=== PATIENT | female | born 1970 | race Caucasian/White ===

== ENCOUNTER 2018-11-13 11:29 | Emergency (ER) | payer OTHER, SELFPAY ==
--- OUTSIDE RECORDS SUMMARY | 2018-11-13 11:44 | XMS REPORT ---
:1970 [facility] Address [address] [place] [address] Dr. Will [address] [place] [id number] Care Team Providers Name Role Phone Unavailable Unavailable Unavailable Problems This patient has no known problems. Allergies, Adverse Reactions, Alerts This patient has no known allergies or adverse reactions. Medications This patient has no known medications.
[2018-11-13] MEDS ORDERED: NA CHLORIDE 0.9% 1,000 ML ONE (12:05)
[2018-11-13 12:12] LABS: Absolute Lymphocytes (CBC) 1.4 K/uL (0.7-4.9); Absolute Monocytes 0.4 K/uL (0.1-1.3); Absolute Neutrophil 2.3 K/uL (1.8-8.0); Basophils % 0.7 % (0-1.3); Eosinophils % 3.1 % (0-4.4); Hematocrit 36.8 % (36.0-45.0); Lymphocytes % 32.5 % (15.3-44.8); MPV 6.5 fL (7.6-11.3); RBC Red Blood Cell Count 3.73 M/uL (3.86-4.86)
[2018-11-13 12:32] LABS: ALT/SGPT 15 U/L (12-78); AST/SGOT 15 U/L (15-37); Albumin 3.4 g/dL (3.4-5.0); Alkaline Phosphatase 47 U/L (45-117); BUN Blood Urea Nitrogen 9 mg/dL (7-18); Bicarbonate 26 mmol/L (21-32); Bilirubin Direct < 0.1 mg/dL (0-0.2); Bilirubin Total 0.3 mg/dL (0.2-1.0); Glucose Level 82 mg/dL (74-106); Lipase 78 U/L (73-393); Potassium 3.9 mmol/L (3.5-5.1); Protein, Total 6.4 g/dL (6.4-8.2); Sodium Level 142 mmol/L (136-145)
[2018-11-13] MEDS ORDERED: PROMETHAZINE 25 MG/ML VIAL ONE (12:37)
--- NOTE | 2018-11-13 13:33 | RAD REPORT ---
EXAM DESCRIPTION: US - Abdomen Exam Limited - 11/13/2018 1:24 pm CLINICAL HISTORY: eval CBD Abdominal pain COMPARISON: Abdomen Exam Complete dated 09/21/2018 FINDINGS: The gallbladder demonstrates small amount of sludge. No gallstone is seen. No pericholecys tic fluid or gallbladder wall thickening. The common bile duct is dilated measuring 10 mm. IMPRESSION: Small amount of sludge is seen in the gallbladder. The CBD appears dilated, similar to the comparative sonography. If further biliary tree assessment is warranted, MRCP may be of value.
--- NOTE | 2018-11-13 14:32 | EDPHYS ---
Physician Documentation [facility] Name: Olena Bowens Age: 48 yrs Sex: Female : 1970 Arrival Date: 11/13/2018 Time: 11:33 Bed 20 Private MD: Juventino Hook B ED Physician Ricky Caldwell HPI: 11/13 11:57 This 48 yrs old Female presents to ER via Ambulatory with complaints of side snw pain, Nausea. 11:57 Onset: The symptoms/episode began/occurred acutely. Associated signs and symptoms: snw Pertinent positives: nausea. recently had GB US and an appt with Dr. Huang. The patient has been recently seen by a physician: Dr. Hook, Dr. Huang. Pt had gastric bypass surg 8 years ago in [place] per "Dr. Shirley". Historical: - Allergies: 11:36 Bactrim; sv - PMHx: 11:36 Hypertension; Migraines; Depression; sv - PSHx: 11:36 Gastric Bypass; Hysterectomy; neck; back; sv - Immunization history:: Flu vaccine is up to date. - Social history:: Smoking status: Patient uses tobacco products, vape. - Ebola Screening: : No symptoms or risks identified at this time. ROS: 11:57 Constitutional: Negative for fever, chills, and weight loss, Eyes: Negative for injury, snw pain, redness, and discharge, ENT: Negative for injury, pain, and discharge, Neck: Negative for injury, pain, and swelling, Cardiovascular: Negative for chest pain, palpitations, and edema, Respiratory: Negative for shortness of breath, cough, wheezing, and pleuritic chest pain, Back: Negative for injury and pain, : Negative for injury, bleeding, discharge, and swelling, MS/Extremity: Negative for injury and deformity, Skin: Negative for injury, rash, and discoloration, Neuro: Negative for headache, weakness, numbness, tingling, and seizure. 11:57 Abdomen/GI: Positive for abdominal pain, nausea. Exam: 11:57 Constitutional: This is a well developed, well nourished patient who is awake, alert, snw and in no acute distress. Head/Face: Normocephalic, atraumatic. Eyes: Pupils equal round and reactive to light, extra-ocular motions intact. Lids and lashes normal. Conjunctiva and sclera are non-icteric and not injected. Cornea within normal limits. Periorbital areas with no swelling, redness, or edema. ENT: Nares patent. No nasal discharge, no septal abnormalities noted. Tympanic membranes are normal and external auditory canals are clear. Oropharynx with no redness, swelling, or masses, exudates, or evidence of obstruction, uvula midline. Mucous membranes moist. Neck: Trachea midline, no thyromegaly or masses palpated, and no cervical lymphadenopathy. Supple, full range of motion without nuchal rigidity, or vertebral point tenderness. No Meningismus. Chest/axilla: Normal chest wall appearance and motion. Nontender with no deformity. No lesions are appreciated. Cardiovascular: Regular rate and rhythm with a normal S1 and S2. No gallops, murmurs, or rubs. Normal PMI, no JVD. No pulse deficits. Respiratory: Lungs have equal breath sounds bilaterally, clear to auscultation and percussion. No rales, rhonchi or wheezes noted. No increased work of breathing, no retractions or nasal flaring. Back: No spinal tenderness. No costovertebral tenderness. Full range of motion. Skin: Warm, dry with normal turgor. Normal color with no rashes, no lesions, and no evidence of cellulitis. MS/ Extremity: Pulses equal, no cyanosis. Neurovascular intact. Full, normal range of motion. Neuro: Awake and alert, GCS 15, oriented to person, place, time, and situation. Cranial nerves II-XII grossly intact. Motor strength 5/5 in all extremities. Sensory grossly intact. Cerebellar exam normal. Normal gait. Psych: Awake, alert, with orientation to person, place and time. Behavior, mood, and affect are within normal limits. 11:57 Abdomen/GI: Inspection: abdomen appears normal, Bowel sounds: hyperactive, Palpation: moderate abdominal tenderness, in the right upper quadrant. Vital Signs: 11:36 BP 138 / 85; Pulse 77; Resp 18; Temp 99.4; Pulse Ox 98% ; Weight 77.11 kg; Height 5 ft. sv 2 in. (157.48 cm); Pain 8/10; 13:30 BP 132 / 76; Pulse 76; Resp 16; Pulse Ox 99% on R/A; Pain 5/10; hb 11:36 Body Mass Index 31.09 (77.11 kg, 157.48 cm) sv MDM: 11:42 Patient medically screened. cornelius 14:32 Data reviewed: vital signs, nurses notes. Data interpreted: Pulse oximetry: on room air snw is 99 %. Interpretation: normal. Counseling: I had a detailed discussion with the patient and/or guardian regarding: the historical points, exam findings, and any diagnostic results supporting the discharge/admit diagnosis, lab results, radiology results, the need for outpatient follow up, to return to the emergency department if symptoms worsen or persist or if there are any questions or concerns that arise at home. Response to treatment: the patient's symptoms have mildly improved after treatment. Response to treatment: and as a result, I will discharge patient. Special discussion: Based on the patient's Hx, exam, and Dx evaluation, there is no indication for emergent surgery or inpatient Tx. It is understood by the patient/guardian that if the Sx's persist or worsen they need to return immediately for re-evaluation. Based on the history and exam findings, there is no indication for further emergent testing or inpatient evaluation. I discussed with the patient/guardian the need to see the rate marker for further evaluation of the symptoms. I discussed with the patient/guardian the need to see the primary care provider for further evaluation of the symptoms. 11/13 11:49 Order name: Basic Metabolic Panel [facility] 11/13 11:49 Order name: CBC with Diff [facility] 11/13 11:49 Order name: Creatinine for Radiology [facility] 11/13 11:49 Order name: Hepatic Function [facility] 11/13 11:49 Order name: Lipase [facility] 11/13 12:14 Order name: CBC with Automated Diff; Complete Time: 12:18 EDPR 11/13 11:49 Order name: IV Saline Lock; Complete Time: 12:04 [facility] 11/13 12:28 Order name: Creatinine (Radiology Only); Complete Time: 12:48 EDMS 11/13 12:33 Order name: Basic Metabolic Panel; Complete Time: 12:48 EDPR 11/13 12:33 Order name: Liver (Hepatic) Function; Complete Time: 12:48 EDMS 11/13 12:33 Order name: Lipase; Complete Time: 12:48 EDMS 11/13 12:49 Order name: US Abdomen Limited; Complete Time: 13:47 [facility] 11/13 11:49 Order name: Labs collected and sent; Complete Time: 12:04 snw Administered Medications: 12:04 Drug: NS 0.9% 1000 ml Route: IV; Rate: 75 ml/hr; Site: right antecubital; hb 12:33 Drug: Phenergan 12.5 mg Route: IVP; Site: right antecubital; hb Disposition: 15:51 Co-signature as Attending Physician, Ricky Caldwell MD I agree with the assessment and cornelius plan of care. Disposition: 11/13/18 14:31 Discharged to Home. Impression: Upper abdominal pain, unspecified - Dilated common bile duct. - Condition is Stable. - Discharge Instructions: Abdominal Pain, Adult, Biliary Colic, Adult, Fat and Cholesterol Restricted Diet. - Work release form, Medication Reconciliation Form, Thank You Letter, Antibiotic Education, Prescription Opioid Use form. - Follow up: Juventino Hook MD; When: 2 - 3 days; Reason: Recheck today's complaints, Continuance of care, Re-evaluation by your physician. Follow up: Alfie Huang MD; When: 1 - 2 days; Reason: Recheck today's complaints, Continuance of care. Signatures: Dispatcher [employer] Nida Varela RN RN sv Anderson, Corey, MD MD cha Therrien, Shelly, MAIL MESSENGER-C MAIL MESSENGER-Csnw Leisa Ortiz RN RN Corrections: (The following items were deleted from the chart) 14:53 14:31 11/13/2018 14:31 Discharged to Home. Impression: Upper abdominal pain, hb unspecified - Dilated common bile duct. Condition is Stable. Forms are Medication Reconciliation Form, Thank You Letter, Antibiotic Education, Prescription Opioid Use. Follow up: Juventino Hook; When: 2 - 3 days; Reason: Recheck today's complaints, Continuance of care, Re-evaluation by your physician. Follow up: Alfie Huang; When: 1 - 2 days; Reason: Recheck today's complaints, Continuance of care. snw
--- NOTE | 2018-11-13 14:32 | ER ---
Nurse's Notes [facility] Name: Olena Bowens Age: 48 yrs Sex: Female : 1970 Arrival Date: 11/13/2018 Time: 11:33 Bed 20 Private MD: Juventino Hook B Diagnosis: Upper abdominal pain, unspecified-Dilated common bile duct Presentation: 11/13 11:34 Presenting complaint: Patient states: right flank pain and nausea x 2 hours. Pt sv recently had an US done and said she has a clogged bile duct and was supposed to have MRCP Tuesday but was unable to do so d/t financial reason.s. Transition of care: patient was not received from another setting of care. Onset of symptoms was November 13, 2018. Care prior to arrival: None. 11:34 Method Of Arrival: Ambulatory sv 11:34 Acuity: JEROD 3 sv 12:00 Risk Assessment: Do you want to hurt yourself or someone else? Patient reports no hb desire to harm self or others. Initial Sepsis Screen: Does the patient meet any 2 criteria? No. Patient's initial sepsis screen is negative. Does the patient have a suspected source of infection? No. Patient's initial sepsis screen is negative. Triage Assessment: 11:37 General: Appears in no apparent distress. uncomfortable, Behavior is calm, cooperative, sv appropriate for age. Pain: Complains of pain in posterior aspect of right lateral abdomen and anterior aspect of right lateral abdomen Pain currently is 8 out of 10 on a pain scale. Neuro: Level of Consciousness is awake, alert, obeys commands, Oriented to person, place, time, situation, Moves all extremities. Full function Gait is steady. Respiratory: Respiratory effort is even, unlabored, Respiratory pattern is regular, symmetrical. GI: Reports nausea. Historical: - Allergies: 11:36 Bactrim; sv - PMHx: 11:36 Hypertension; Migraines; Depression; sv - PSHx: 11:36 Gastric Bypass; Hysterectomy; neck; back; sv - Immunization history:: Flu vaccine is up to date. - Social history:: Smoking status: Patient uses tobacco products, vape. - Ebola Screening: : No symptoms or risks identified at this time. Screenin:00 Abuse screen: Denies threats or abuse. Denies injuries from another. Nutritional hb screening: No deficits noted. Tuberculosis screening: No symptoms or risk factors identified. Fall Risk None identified. Assessment: 12:00 General: Appears in no apparent distress. Behavior is calm, cooperative. Pain: Pain hb currently is 7 out of 10 on a pain scale. Neuro: Level of Consciousness is awake, alert, obeys commands, Oriented to person, place, time, situation. Cardiovascular: Heart tones S1 S2 present Capillary refill < 3 seconds Patient's skin is warm and dry. Respiratory: Airway is patent Respiratory effort is even, unlabored, Respiratory pattern is regular, symmetrical, Breath sounds are clear bilaterally. GI: Abdomen is flat, Bowel sounds present X 4 quads. Abd is soft and non tender X 4 quads. Reports lower abdominal pain. : No signs and/or symptoms were reported regarding the genitourinary system. EENT: No signs and/or symptoms were reported regarding the EENT system. Derm: Skin is intact, is healthy with good turgor. Musculoskeletal: No signs and/or symptoms reported regarding the musculoskeletal system. 13:00 Reassessment: Patient appears in no apparent distress at this time. Patient and/or hb family updated on plan of care and expected duration. Pain level reassessed. Patient is alert, oriented x 3, equal unlabored respirations, skin warm/dry/pink. 14:00 Reassessment: Patient appears in no apparent distress at this time. Patient and/or hb family updated on plan of care and expected duration. Pain level reassessed. Patient is alert, oriented x 3, equal unlabored respirations, skin warm/dry/pink. Vital Signs: 11:36 BP 138 / 85; Pulse 77; Resp 18; Temp 99.4; Pulse Ox 98% ; Weight 77.11 kg; Height 5 ft. sv 2 in. (157.48 cm); Pain 8/10; 13:30 BP 132 / 76; Pulse 76; Resp 16; Pulse Ox 99% on R/A; Pain 5/10; hb 11:36 Body Mass Index 31.09 (77.11 kg, 157.48 cm) sv ED Course: 11:33 Patient arrived in ED. sb2 11:33 Juventino Hook MD is Private Physician. sb2 11:35 Triage completed. sv 11:37 Arm band placed on. sv 11:40 Stephany Masterson [facility]-C [facility]. snw 11:40 Ricky Caldwell MD is Attending Physician. snw 11:52 Leisa Ortiz, RN is Primary Nurse. hb 12:09 Patient has correct armband on for positive identification. Placed in gown. Bed in low mh5 position. Call light in reach. Side rails up X 1. Adult w/ patient. Warm blanket given. Pulse ox on. NIBP on. 12:09 Initial lab(s) drawn, sent to lab. Inserted saline lock: 20 gauge in right antecubital mh5 area, using aseptic technique. Blood collected. 13:15 Basic Metabolic Panel Sent. 5 13:15 CBC with Diff Sent. mh5 13:15 Creatinine for Radiology Sent. 5 13:16 Hepatic Function Sent. 5 13:16 Lipase Sent. 5 13:24 US Abdomen Limited In Process Unspecified. EDMS 14:30 Juventino Hook MD is Referral Physician. snw 14:30 Alfie Huang MD is Referral Physician. snw 14:44 No provider procedures requiring assistance completed. IV discontinued, intact, hb bleeding controlled, No redness/swelling at site. Pressure dressing applied. Administered Medications: 12:04 Drug: NS 0.9% 1000 ml Route: IV; Rate: 75 ml/hr; Site: right antecubital; hb 12:33 Drug: Phenergan 12.5 mg Route: IVP; Site: right antecubital; hb Outcome: 14:31 Discharge ordered by . snw 14:44 Discharged to home ambulatory, with significant other. hb 14:44 Condition: stable 14:44 Discharge instructions given to patient, family, Instructed on discharge instructions, follow up and referral plans. medication usage, Demonstrated understanding of instructions, follow-up care, medications. 14:53 Patient left the ED. hb Signatures: Dispatcher [employer] EDPR Nida Vazquze RN RN sv Therrien, Shelly, FNP-Tony [employer]ULLET CRUSHER [employer] WASHER-Angélicaw Leisa Ortiz, IZAIAH RN Gely [facility] Dorothy Parra sb2 Corrections: (The following items were deleted from the chart) 11:37 11:36 Pulse 77bpm; Resp 18bpm; Pulse Ox 98%; Temp 99.4F; 77.11 kg; Height 5 ft. 2 in.; sv BMI: 31.0; Pain 8/10; sv
[2018-11-13 15:02] VITALS: TEMP 99.4
[2018-11-13 15:04] VITALS: BP 132/76; O2SAT 99
== END 2018-11-13 14:53 | disposition home or self-care (01) ==
LOC: ER 11:29
DX: K83.8 Other specified diseases of biliary tract (principal); I10 Essential (primary) hypertension; Z72.0 Tobacco use; Z88.1 Allergy status to other antibiotic agents
CPT/HCPCS: 36415; 76705; 80048; 80076; 83690; 85025; J2550; J7030

== ENCOUNTER 2024-12-11 17:46 | Inpatient (IN) | payer OTHER ==
--- NOTE | 2024-12-11 18:36 | RAD REPORT ---
EXAM: Chest Single View HISTORY: cough COMPARISON: 07/27/2017 FINDINGS: LUNGS/PLEURA: Ill-defined opacities in the right upper lobe and to lesser extent right lung base. MEDIASTINUM: The mediastinal silhouette is within normal limits. CARDIAC: The cardiac silhouette is within normal limits. UPPER ABDOMEN: No significant abnormality. BONES: No acute abnormality. LINES/TUBES/OTHER: N/A IMPRESSION: Ill-defined right lung opacities, primarily in the right upper lobe, concerning for pneumonia. John garcia follow-up is recommended to ensure resolution.
--- NOTE | 2024-12-11 19:59 | P.HP ---
Certification for Inpatient Patient admitted to: Inpatient With expected LOS: >2 Midnights Practitioner: I am a practitioner with admitting privileges, knowledge of patient current condition, hospital course, and medical plan of care. Services: Services provided to patient in accordance with Admission requirements found in Title 42 Section 412.3 of the Code of Federal Regulations Patient History Date of Service: 12/11/24 Reason for admission: pneumonia History of Present Illness: 54-year-old female with past medical history of SVT, fibromyalgia, chronic back pain, hypertension, migraines, history of gastric bypass presents to ER with 2- day history of worsening shortness of breath and productive cough and fevers. Reports that antibiotics were ordered outpatient she did not started. Had a temperature of 102 degrees at home. States that oxygen sats were 88% on room air and then presented to the ER. In the emergency room was noted to have an abnormal chest x-ray. She has being admitted for community-acquired pneumonia. Her viral screen is currently pending. As well as her lab work. She does report that she vapes. Reports diarrhea that has started in the last day Allergies sulfamethoxazole [From Bactrim DS] Adverse Reaction (Mild, Verified 08/14/14 21:15) Hives trimethoprim [From Bactrim DS] Adverse Reaction (Mild, Verified 08/14/14 21:15) Hives Home Medications: Gabapentin [Neurontin] 800 mg PO QIDP PRN 08/14/14 Venlafaxine HCl [Effexor*] 75 mg PO DAILY 08/14/14 Amlodipine Besylate [Norvasc] 1 tab PO DAILY 07/27/17 Baclofen [Lioresal] 1 tab PO TID 07/27/17 Hydrocodone Bit/Acetaminophen [Central 10-325 Tablet] 1 tab PO TID 07/27/17 Levomefolate Calcium [l-Methylfolate] 1 tab PO DAILY 07/27/17 Famotidine [Pepcid*] 20 mg PO BID #60 tab 07/28/17 Ferrous Sulfate [Iron] 325 mg PO BID #60 tablet 07/28/17 - Past Medical/Surgical History Diabetic: No -: Migraine headaches -: Depression -: Iron deficiency anemia -: Fibromyalgia -: Hypertension -: History of TIA -: Neuropathy -: Chronic back pain -: Gastric bypass -: Hysterectomy -: Multiple back surgeries -: Carpal tunnel surgery Psychosocial/ Personal History: The patient is . She has 2 children. She works as a police lieutenant patrol. - Family History Mother -: Heart disease, Diabetes, Stroke Father -: Heart disease, Hypertension, Cancer - Social History Alcohol use: No CD- Drugs: No Caffeine use: Yes Review of Systems 10-point ROS is otherwise unremarkable General: Fever, Weakness Respiratory: Cough, Shortness of Breath, Sputum Physical Examination - Physical Exam General: Alert, Oriented x3 HEENT: Atraumatic, Normocephalic Respiratory: Rhonchi/gurgles Cardiovascular: No edema, Regular rate/rhythm, Normal S1 S2 Gastrointestinal: Soft and benign, Non-distended Musculoskeletal: No swelling Integumentary: No rashes, Other Neurological: Normal speech Assessment and Plan - Problems (Diagnosis) (1) Pneumonia Current Visit: Yes Status: Acute - Plan 54-year-old female with history of chronic back pain, farm [place], hypertension, history of SVT, tobacco use presents with 2-day history of cough and fevers. Community-acquired pneumonia Hypoxemic respiratory failure tobacco use Diarrhea Hypertension History of arrhythmia History of chronic back pain Gastric bypass surgery Plan: Admit to [facility] with telemetry IV fluids, IV Rocephin and azithromycin albuterol , mucinex Follow-up cultures send stool studies Fluids Follow-up labs Home medication reconciliation - Advance Directives Does patient have a Living Will: No Does patient have a Durable POA for Healthcare: No
[2024-12-11] MEDS ORDERED: CEFTRIAXONE 1000 MG/VIAL ONE (20:13)
[2024-12-11] MEDS ORDERED: ALBUTEROL 2.5 MG/3 ML NEB SOL ONE (20:13)
[2024-12-11] MEDS ORDERED: IPRATROPIUM BROM 0.5MG/2.5ML ONE (20:13)
[2024-12-11] MEDS ORDERED: NA CHLORIDE 0.9% 250 ML ONE (20:14)
[2024-12-11] MEDS ORDERED: NA CHLORIDE 0.9% 1,000 ML ONE (20:14)
[2024-12-11] MEDS ORDERED: AZITHROMYCIN 500 MG INJ IVPB ONE (20:14)
[2024-12-11 20:19] LABS: Absolute Lymphocytes (CBC) 0.7 K/uL (0.7-4.9); Absolute Monocytes 0.2 K/uL (0.1-1.3); Absolute Neutrophil 6.9 K/uL (1.8-8.0); Basophils % 0.1 % (0-1.3); Hematocrit 37.6 % (36.0-45.0); Hemoglobin 12.4 g/dL (12.0-15.0); Lymphocytes % 8.9 % (15.3-44.8); MCH 32.5 pg (27.0-35.0); MCV 98.5 fL (80-100); MPV 7.1 fL (7.6-11.3); Monocytes % 2.8 % (3.3-12.3); Neutrophils % 88.2 % (41.7-73.7); Platelets 165 thou/uL (152-406); RBC Red Blood Cell Count 3.82 M/uL (3.86-4.86); Red Cell Distribution Width 13.7 % (12.1-15.2)
[2024-12-11 20:21] LABS: SARS-CoV-2 Antigen CONTROL BLUE LINE VIS/BG OK; SARS-CoV-2 Antigen Rapid Res Negative (Negative)
[2024-12-11 20:32] LABS: ALT/SGPT 35 U/L (13-56); AST/SGOT 41 U/L (15-37); Albumin 2.8 g/dL (3.4-5.0); Albumin/Globulin Ratio 0.7 (1.1-1.8); Alkaline Phosphatase 61 U/L (45-117); Anion Gap 10.7 mEq/L (5.0-15.0); BUN Blood Urea Nitrogen 31 mg/dL (7-18); Bicarbonate 22 mEq/L (21-32); Bilirubin Total 0.4 mg/dL (0.2-1.0); Globulin 3.8 g/dL (2.3-3.5); Glomerular Filtration Rate 31 ml/min (=/>90); Glucose Level 106 mg/dL (74-106); Potassium 3.7 mEq/L (3.5-5.1); Protein, Total 6.6 g/dL (6.4-8.2); Sodium Level 133 mEq/L (136-145)
[2024-12-11 20:58] LABS: Bilirubin Direct < 0.2 mg/dL (0-0.2); Bilirubin Indirect, Calculated 0.2 mg/dL (0.2-0.8)
[2024-12-11] MEDS ORDERED: ALBUTEROL 2.5 MG/3 ML NEB SOL NEB PRN (21:07)
--- NOTE | 2024-12-11 21:20 | EDPHYS ---
Physician Documentation [facility] Name: Olena Bowens Age: 54 yrs Sex: Female : 1970 Arrival Date: 12/11/2024 Time: 17:46 Bed 14 Private MD: ED Physician Himanshu Pinzon HPI: 12/11 18:59 This 54 yrs old Female presents to ER via Unassigned with complaints of Flu Symptoms, sp3 Shortness Of Breath. 18:59 54-year-old female with a history of hypertension presents to the ED with chief sp3 complaint of fever, cough, congestion, generalized weakness. PCP put patient on Tamiflu, inhaler and cough suppressant still patient feels like she is getting worse. She denies headache, trauma, known sick contacts, back pain, chest pain, abdominal pain, vomiting, diarrhea, syncope, or any other signs or symptoms on ROS at this time.. Historical: - Allergies: 20:43 Bactrim; kj2 - PMHx: 18:50 Depression; Hypertension; Migraines; kj2 - Immunization history:: Adult Immunizations unknown. - Infectious Disease History:: Denies. - Social history:: Smoking status: unknown. ROS: 19:01 Eyes: Negative for injury, pain, redness, and discharge, ENT: Negative for injury, sp3 pain, and discharge, Neck: Negative for injury, pain, and swelling, Cardiovascular: Negative for chest pain, palpitations, and edema, Abdomen/GI: Negative for abdominal pain, nausea, vomiting, diarrhea, and constipation, Back: Negative for injury and pain, MS/Extremity: Negative for injury and deformity, Skin: Negative for injury, rash, and discoloration, Neuro: Negative for headache, weakness, numbness, tingling, and seizure, Psych: Negative for depression, anxiety, suicide ideation, homicidal ideation, and hallucinations, Allergy/Immunology: Negative for hives, rash, and allergies, Endocrine: Negative for neck swelling, polydipsia, polyuria, polyphagia, and marked weight changes, Hematologic/Lymphatic: Negative for swollen nodes, abnormal bleeding, and unusual bruising, 19:01 All other systems are negative, Exam: 19:01 Constitutional: This is a well developed, well nourished patient who is awake, alert, sp3 and in no acute distress. Head/Face: Normocephalic, atraumatic. Eyes: Pupils equal round and reactive to light, extra-ocular motions intact. Lids and lashes normal. Conjunctiva and sclera are non-icteric and not injected. Cornea within normal limits. Periorbital areas with no swelling, redness, or edema. Neck: Trachea midline, no thyromegaly or masses palpated, and no cervical lymphadenopathy. Supple, full range of motion without nuchal rigidity, or vertebral point tenderness. No Meningismus. Chest/axilla: Normal chest wall appearance and motion. Nontender with no deformity. No lesions are appreciated. Cardiovascular: Regular rate and rhythm with a normal S1 and S2. No gallops, murmurs, or rubs. Normal PMI, no JVD. No pulse deficits. Abdomen/GI: Soft, non-tender, with normal bowel sounds. No distension or tympany. No guarding or rebound. No evidence of tenderness throughout. Back: No spinal tenderness. No costovertebral tenderness. Full range of motion. Skin: Warm, dry with normal turgor. Normal color with no rashes, no lesions, and no evidence of cellulitis. MS/ Extremity: Pulses equal, no cyanosis. Neurovascular intact. Full, normal range of motion. Neuro: Awake and alert, GCS 15, oriented to person, place, time, and situation. Cranial nerves II-XII grossly intact. Motor strength 5/5 in all extremities. Sensory grossly intact. Cerebellar exam normal. Normal gait. Psych: Awake, alert, with orientation to person, place and time. Behavior, mood, and affect are within normal limits. 19:01 Respiratory: Active cough with rhonchi bilaterally., Vital Signs: 18:50 BP 84 / 56; Pulse 82; Resp 18; Pulse Ox 95% on R/A; kj2 19:50 BP 75 / 65; Pulse 80; Resp 20; Pulse Ox 94% on R/A; kj2 20:49 BP 95 / 67; Pulse 74; Resp 16; Temp 97.6; Pulse Ox 99% ; rk3 22:00 BP 90 / 60; Pulse 72; Resp 17; Pulse Ox 96% ; jj7 22:50 BP 90 / 63; Pulse 71; Resp 19; Pulse Ox 100% ; Pain 0/10; jj7 22:50 Pain Scale: Adult jj7 MDM: 18:42 Medical Screening Exam initiated sp3 19:01 Data reviewed: vital signs, nurses notes, lab test result(s), radiologic studies. ED sp3 course: 54-year-old female with cough, fever and hypoxia at 92% on room air. Patient does vape but does not smoke. Differential diagnosis includes bronchitis, pneumonia, viral illness, COVID-19, influenza, among others. I am not highly suspicious of CHF, shock, or any other critical process at this time. Disposition probable admission. Chest x-ray does demonstrate infiltrate and we will treat with community-acquired pneumonia with Zithromax and Rocephin. Will admit once labs reviewed.. 21:20 Differential diagnosis: Anxiety Reaction asthma, Bronchitis Chronic Obstructive sp4 Pulmonary Disease pneumonia. ED course: EXAM: Chest Single View HISTORY: cough COMPARISON: 07/27/2017 FINDINGS: LUNGS/PLEURA: Ill-defined opacities in the right upper lobe and to lesser extent right lung base. MEDIASTINUM: The mediastinal silhouette is within normal limits. CARDIAC: The cardiac silhouette is within normal limits. UPPER ABDOMEN: No significant abnormality. BONES: No acute abnormality. LINES/TUBES/OTHER: N/A IMPRESSION: Ill-defined right lung opacities, primarily in the right upper lobe, concerning for pneumonia. Imaging follow-up is recommended to ensure resolution. . 12/11 18:27 Order name: Influenza Screen (A EDUT 12/11 18:27 Order name: Basic Metabolic Panel EDMS 12/11 18:27 Order name: CBC with Automated Diff EDMS 12/11 18:27 Order name: Liver (Hepatic) Function EDMS 12/11 18:27 Order name: Blood Culture EDMS 12/11 18:57 Order name: Lactate w/ 2H reflex if indic. sp3 12/11 18:57 Order name: SARS RAPID sp3 12/11 21:11 Order name: Urinalysis w/ reflexes EDMS 12/11 21:11 Order name: CBC with Automated Diff EDMS 12/11 21:11 Order name: CBC with Automated Diff EDMS 12/11 21:11 Order name: Comprehensive Metabolic Panel EDMS 12/11 21:11 Order name: Comprehensive Metabolic Panel EDUT 12/11 21:11 Order name: Sputum Culture EDMS 12/11 21:12 Order name: Stool Culture EDMS 12/11 18:27 Order name: Chest Single View; Complete Time: 18:42 EDMS Administered Medications: 20:27 Drug: NS 0.9% IV 1000 ml IV at 1 bolus Per protocol; to be given as a bolus over 60 kj2 minutes Route: IV; Rate: 1 bolus; Site: right antecubital; 21:47 Follow up: IV Status: Completed infusion; IV Intake: 1000ml kj2 20:27 Drug: DuoNeb Nebulize (3:1) (2.5 mg - 0.5 mg) 3 ml Nebulizer once Route: Nebulizer; kj2 21:47 Follow up: Response: No adverse reaction kj2 20:28 Drug: Rocephin IV 1 grams IV at calculated rate once; Given slow IV push per pharmacy kj2 instructions Route: IV; Rate: calculated rate; Site: right antecubital; 22:00 Follow up: IV Status: Completed infusion jj7 20:28 Drug: Zithromax IVPB 500 mg IVPB once over 1 hrs; mix in 250 mL NS Route: IVPB; Infused kj2 Over: 1 hrs; Site: right antecubital; 21:47 Follow up: Response: No adverse reaction; IV Status: Completed infusion; IV Intake: kj2 250ml Disposition Summary: 12/11/24 21:19 Hospitalization Ordered Notes: Hospitalization Status: Inpatient Admission sp4 Provider: Andrew Wyatt Location: Telemetry/[facility] (Inpatient) sp4 Condition: Stable sp4 Problem: new sp4 Symptoms: have improved sp4 Bed/Room Type: Standard sp4 Room Assignment: [facility](12/11/24 21:34) [facility] Diagnosis - Other pneumonia, unspecified organism sp4 - Right lower pneumonia with hypoxemia sp4 Forms: - Medication Reconciliation Form sp4 - SBAR form sp4 - Leadership Thank You Letter sp4 Signatures: Dispatcher [employer] EDMS Sim Canas MD MD sp3 Celia Tena, IZAIAH RN kb3 Himanshu Pinzon MD MD sp4 Sherine Amaral [facility] Diana Yin RN RN kj2 Adilene Lao RN jj7 Corrections: (The following items were deleted from the chart) 18:57 18:57 LACTATE+C.LAB.BRZ ordered. EDMS EDMS 21:34 21:19 sp4 kmf
--- NOTE | 2024-12-11 21:20 | ER ---
Nurse's Notes [facility] Name: Olena Bowens Age: 54 yrs Sex: Female : 1970 Arrival Date: 12/11/2024 Time: 17:46 Bed 14 Private MD: Diagnosis: Other pneumonia, unspecified organism;Right lower pneumonia with hypoxemia Presentation: 12/11 18:45 Chief complaint: Patient states: flu symptoms. Coronavirus screen: Client denies travel kj2 out of the [place] in the last 14 days. Ebola Screen: No symptoms or risks identified at this time. Initial Sepsis Screen: Does the patient meet any 2 criteria? No. Patient's initial sepsis screen is negative. Does the patient have a suspected source of infection? No. Patient's initial sepsis screen is negative. Risk Assessment: Do you want to hurt yourself or someone else? Patient reports no desire to harm self or others. Onset of symptoms was December 11, 2024. 18:45 Method Of Arrival: Ambulatory kj2 18:45 Acuity: JEROD 3 kj2 Triage Assessment: 18:50 General: Appears in no apparent distress. Behavior is calm, cooperative. Pain: Denies kj2 pain. Neuro: Level of Consciousness is awake, alert, obeys commands, Oriented to person, place, time, situation. Cardiovascular: Patient's skin is warm and dry. Respiratory: Reports shortness of breath at rest cough that is non-productive. Respiratory: Onset: The symptoms/episode began/occurred 2 days, the patient has moderate shortness of breath. GI: No signs and/or symptoms were reported involving the gastrointestinal system. : No signs and/or symptoms were reported regarding the genitourinary system. Historical: - Allergies: 20:43 Bactrim; kj2 - PMHx: 18:50 Depression; Hypertension; Migraines; kj2 - Immunization history:: Adult Immunizations unknown. - Infectious Disease History:: Denies. - Social history:: Smoking status: unknown. Screenin:50 [facility] ED Fall Risk Assessment (Adult) History of falling in the last 3 months, kj2 including since admission No falls in past 3 months (0 pts) Confusion or Disorientation No (0 pts) Intoxicated or Sedated No (0 pts) Impaired Gait No (0 pts) Mobility Assist Device Used No (0 pt) Altered Elimination No (0 pt) Score/Fall Risk Level 0 - 2 = Low Risk Maintained a safe environment, Hourly rounding (assess needs \T\ fall precautionary measures) done. Abuse screen: Denies threats or abuse. Denies injuries from another. Nutritional screening: No deficits noted. Tuberculosis screening: No symptoms or risk factors identified. Assessment: 18:50 General: see triage assessment. Cardiovascular: Patient's skin is warm and dry. kj2 Cardiovascular: Rhythm is sinus rhythm. Respiratory: Airway is patent Respiratory effort is unlabored, Breath sounds with rhonchi bilaterally. in right upper lobe and left upper lobe. 19:50 Reassessment: Patient appears in no apparent distress at this time. Patient and/or kj2 family updated on plan of care and expected duration. Pain level reassessed. Patient is alert, oriented x 3, equal unlabored respirations, skin warm/dry/pink. 20:50 Reassessment: Patient appears in no apparent distress at this time. Patient and/or kj2 family updated on plan of care and expected duration. Pain level reassessed. Patient is alert, oriented x 3, equal unlabored respirations, skin warm/dry/pink. 21:50 Reassessment: Patient appears in no apparent distress at this time. Patient and/or kj2 family updated on plan of care and expected duration. Pain level reassessed. Patient is alert, oriented x 3, equal unlabored respirations, skin warm/dry/pink. 22:00 Reassessment: ASSUMED CARE OF PT. PT SITTING IN BED. NO DISTRESS NOTED. VS STABLE. jj7 FAMILY AT BEDSIDE. CALL GREEN IN REACH. Vital Signs: 18:50 BP 84 / 56; Pulse 82; Resp 18; Pulse Ox 95% on R/A; kj2 19:50 BP 75 / 65; Pulse 80; Resp 20; Pulse Ox 94% on R/A; kj2 20:49 BP 95 / 67; Pulse 74; Resp 16; Temp 97.6; Pulse Ox 99% ; rk3 22:00 BP 90 / 60; Pulse 72; Resp 17; Pulse Ox 96% ; jj7 22:50 BP 90 / 63; Pulse 71; Resp 19; Pulse Ox 100% ; Pain 0/10; jj7 22:50 Pain Scale: Adult jj7 ED Course: 18:27 Patient arrived in ED. kb3 18:30 Sim Canas MD is Attending Physician. sp3 18:33 Chest Single View In Process Unspecified. EDMS 19:51 Missed attempt(s): 20 gauge in left antecubital area. Bleeding controlled, band aid rk3 applied, catheter tip intact. 19:52 Inserted saline lock: 20 gauge in right antecubital area, using aseptic technique. jj7 Blood collected. Flushed with 10 mL NS. 20:05 Diana Yin, RN is Primary Nurse. kj2 20:06 Triage completed. kj2 21:13 COVID swab sent to lab. Flu and/or RSV swab sent to lab. rk3 21:18 Attending Physician role handed off by Sim Canas MD sp4 21:18 Himanshu Pinzon MD is Attending Physician. sp4 21:18 Andrew Wyatt MD is Hospitalizing Provider. sp4 22:00 No provider procedures requiring assistance completed. Patient admitted, IV remains in jj7 place. 22:00 Patient has correct armband on for positive identification. Placed in gown. Provided [facility] Education on: CALL GREEN USE. Administered Medications: 20:27 Drug: NS 0.9% IV 1000 ml IV at 1 bolus Per protocol; to be given as a bolus over 60 kj2 minutes Route: IV; Rate: 1 bolus; Site: right antecubital; 21:47 Follow up: IV Status: Completed infusion; IV Intake: 1000ml kj2 20:27 Drug: DuoNeb Nebulize (3:1) (2.5 mg - 0.5 mg) 3 ml Nebulizer once Route: Nebulizer; kj2 21:47 Follow up: Response: No adverse reaction kj2 20:28 Drug: Rocephin IV 1 grams IV at calculated rate once; Given slow IV push per pharmacy kj2 instructions Route: IV; Rate: calculated rate; Site: right antecubital; 22:00 Follow up: IV Status: Completed infusion j7 20:28 Drug: Zithromax IVPB 500 mg IVPB once over 1 hrs; mix in 250 mL NS Route: IVPB; Infused kj2 Over: 1 hrs; Site: right antecubital; 21:47 Follow up: Response: No adverse reaction; IV Status: Completed infusion; IV Intake: kj2 250ml Medication: 22:00 VIS not applicable for this client. jj7 Intake: 21:47 IV: 1000ml; Total: 1000ml. kj2 21:47 IV: 250ml; Total: 1250ml. kj2 Outcome: 21:19 Decision to Hospitalize by Provider. sp4 22:50 Admitted to Med/surg accompanied by nurse, via wheelchair, room 228, Report called to miguel angel REPORT FAXED BY DIANA RN TO 2ND FLOOR 22:50 Condition: improved 23:17 Patient left the ED. miguel angel Signatures: Dispatcher [employer] EDMS Sim Canas MD MD sp3 Celia Tena, RN RN kb3 Adilene Lao, RN RN jj7 Himanshu Pinzon MD MD sp4 Diana Yin, RN RN kj2 Gemini Lauren rk3
[2024-12-11] MEDS: NA CHLORIDE 0.9% 1,000 ML IV SCH (23:28)
[2024-12-11 23:34] VITALS: BMI 25.5
[2024-12-12 01:40] LABS: Specific Gravity 1.009 (1.005-1.030); Sqamous Epithelial <5 /HPF (None Seen); Urine Bacteria <20 /HPF (<20); Urine Bilirubin NEGATIVE (Negative); Urine Blood Negative (Negative); Urine Clarity Clear (Clear); Urine Color Colorless (Yellow); Urine Culture Reflex Order NOT NEEDED; Urine Glucose NEGATIVE (Negative); Urine Ketones NEGATIVE (Negative); Urine Microscopic Reflex YN ORDER UMIC; Urine Mucus Slight /HPF (None Seen); Urine Nitrite NEGATIVE (Negative); Urine Protein NEGATIVE (Negative); Urine RBC None Seen /HPF (None Seen); Urine Urobilinogen Normal (Normal); Urine WBC <5 /HPF (<5); Urine pH 5.5 (5.0-7.0)
[2024-12-12 05:40] LABS: Absolute Lymphocytes (CBC) 0.7 K/uL (0.7-4.9); Absolute Monocytes 0.2 K/uL (0.1-1.3); Absolute Neutrophil 4.9 K/uL (1.8-8.0); Basophils % 0.1 % (0-1.3); Eosinophils % 0.1 % (0-4.4); Hematocrit 35.6 % (36.0-45.0); Hemoglobin 11.8 g/dL (12.0-15.0); Lymphocytes % 12.4 % (15.3-44.8); MCH 32.6 pg (27.0-35.0); MCHC 33.2 g/dL (32.0-36.0); MCV 98.4 fL (80-100); Monocytes % 3.5 % (3.3-12.3); Neutrophils % 83.9 % (41.7-73.7); Nucleated Red Blood Cells % 0.1 % (0-0); Platelets 171 thou/uL (152-406); RBC Red Blood Cell Count 3.62 M/uL (3.86-4.86); Red Cell Distribution Width 13.5 % (12.1-15.2)
[2024-12-12 05:48] LABS: Albumin 2.4 g/dL (3.4-5.0); Albumin/Globulin Ratio 0.7 (1.1-1.8); Anion Gap 6.8 mEq/L (5.0-15.0); Bilirubin Total 0.2 mg/dL (0.2-1.0); Globulin 3.3 g/dL (2.3-3.5); Potassium 3.8 mEq/L (3.5-5.1); Protein, Total 5.7 g/dL (6.4-8.2)
[2024-12-12] MEDS ORDERED: ENOXAPARIN 30 MG/0.3 ML SQ SCH (09:00)
[2024-12-12] MEDS: ENOXAPARIN 40 MG/0.4 ML SQ SCH (10:51)
[2024-12-12] MEDS: ACETAMINOPHEN 500 MG TAB PO PRN (10:57)
[2024-12-12 12:09] VITALS: BP 107/66; TEMP 99.6
[2024-12-12 14:16] VITALS: O2SAT 99
[2024-12-12] MEDS ORDERED: HYDROCODONE/APAP 10/325 TAB PO SCH (15:20)
[2024-12-12] MEDS ORDERED: HOME MED 1 EA UNK (Gabapentin [Neurontin] 800 MG Tablet) PO PRN (15:20)
[2024-12-12] MEDS ORDERED: GABAPENTIN 400 MG CAP PO PRN (15:33)
[2024-12-12] MEDS ORDERED: methocarbamoL 750 MG TAB PO SCH ×2 (15:36→17:34)
--- NOTE | 2024-12-12 15:52 | P.DS ---
Admission Date: 12/11/24 Discharge Date: 12/12/24 Disposition: ROUTINE DISCHARGE Discharge Condition: FAIR Reason for Admission: pneumonia Brief History of Present Illness: Diagnosis Hypoxemic respiratory failure secondary to fluid A positive Community-acquired pneumonia Hypertension Chronic back pain Gastric bypass History of arrhythmia Tobacco use HPI 12/11/2024 54-year-old female with past medical history of SVT, fibromyalgia, chronic back pain, hypertension, migraines, history of gastric bypass presents to ER with 2- day history of worsening shortness of breath and productive cough and fevers. Reports that antibiotics were ordered outpatient she did not started. Had a temperature of 102 degrees at home. States that oxygen sats were 88% on room air and then presented to the ER. In the emergency room was noted to have an abnormal chest x-ray. She has being admitted for community-acquired pneumonia. Her viral screen is currently pending. As well as her lab work. She does report that she vapes. Reports diarrhea that has started in the last day Hospital Course: Patient was admitted and treated for the following diagnosis Hypoxemic respiratory failure secondary to flu A Community-acquired pneumonia tobacco use Diarrhea Hypertension History of arrhythmia History of chronic back pain Gastric bypass surgery Plan: Admit to [facility] with telemetry IV fluids, IV Rocephin and azithromycin albuterol , mucinex Follow-up cultures send stool studies Fluids Follow-up labs Home medication reconciliation On 12/12/2024, Olena was seen on morning rounds and deemed hemodynamically stable for discharge. Levaquin and Tamiflu called into the pharmacy. Physical Exam General: Alert and oriented x3, NAD HEENT: Atraumatic, Normocephalic Respiratory: Nonlabored breathing, on room air Cardiovascular: No edema, RRR, Normal S1 S2 Gastrointestinal: Soft and benign on palpation, Non-distended Musculoskeletal: No swelling Integumentary: No rashes, Other Neurological: Normal speech Vital Signs/Physical Exam: Temp Pulse Resp BP Pulse Ox 99.6 F 89 18 107/66 99 12/12/24 12:00 12/12/24 12:00 12/12/24 12:00 12/12/24 12:00 12/12/24 12:00 Laboratory Data at Discharge: WBC 5.90 thou/uL (4.3-10.9) 12/12/24 04:58 Hgb 11.8 g/dL (12.0-15.0) L 12/12/24 04:58 Hct 35.6 % (36.0-45.0) L 12/12/24 04:58 Plt Count 171 thou/uL (152-406) 12/12/24 04:58 Sodium 139 mEq/L (136-145) D 12/12/24 04:58 Potassium 3.8 mEq/L (3.5-5.1) 12/12/24 04:58 BUN 28 mg/dL (7-18) H 12/12/24 04:58 Creatinine 1.04 mg/dL (0.55-1.02) H 12/12/24 04:58 Glucose 105 mg/dL (74-106) 12/12/24 04:58 Total Bilirubin 0.2 mg/dL (0.2-1.0) 12/12/24 04:58 AST 28 U/L (15-37) 12/12/24 04:58 ALT 28 U/L (13-56) 12/12/24 04:58 Alkaline Phosphatase 50 U/L (45-117) 12/12/24 04:58 Home Medications: Gabapentin [Neurontin] 800 mg PO QIDP PRN 08/14/14 Hydrocodone Bit/Acetaminophen [[place] 10-325 Tablet] 1 tab PO TID 07/27/17 Albuterol Sulfate/Budesonide [Airsupra 90-80 Mcg Inhaler] 2 puff TID 12/11/24 Benzonatate [Tessalon Perle*] 200 mg PO BID 12/11/24 Propranolol [Inderal*] 10 mg PO DAILY 12/11/24 methocarbamoL [Robaxin*] 750 mg PO TID 12/11/24 Oseltamivir Phosphate [Tamiflu] 75 mg PO BID #10 cap 12/12/24 levoFLOXacin [Levaquin] 750 mg PO DAILY #5 tab 12/12/24 New Medications: levoFLOXacin [Levaquin] 750 mg PO DAILY #5 tab Oseltamivir Phosphate [Tamiflu] 75 mg PO BID #10 cap Diet: AHA Activity: Ad tigist Followup: Juventino Hook MD [Primary Care Provider] - 1-2 Weeks
[2024-12-12] MEDS ORDERED: PROPRANOLOL HCL 10 MG TAB PO SCH (16:00)
== END 2024-12-12 16:18 | disposition home or self-care (01) | DRG 193 ==
LOC: ER 17:46 → ERHOLD 21:07 → 2ND 22:49
PROVIDERS: ADMIT Internal Medicine; ATTEND Internal Medicine
DX: J18.9 Pneumonia, unspecified organism (principal); J96.91 Respiratory failure, unspecified with hypoxia; I10 Essential (primary) hypertension; M79.7 Fibromyalgia; G89.29 Other chronic pain; M54.9 Dorsalgia, unspecified; F17.290 Nicotine dependence, other tobacco product, uncomplicated; Z88.1 Allergy status to other antibiotic agents; Z98.84 Bariatric surgery status; Z91.148 Patient's other noncompliance with medication regimen for other reason; Z79.899 Other long term (current) drug therapy; Z86.73 Personal history of transient ischemic attack (TIA), and cerebral infarction without residual deficits; Z90.710 Acquired absence of both cervix and uterus; Z11.52 Encounter for screening for COVID-19
CPT/HCPCS: 36415; 71045; 80048; 80053; 80076; 81001; 82533; 83605; 85025; 87040; 87045; 87046; 87070; 87077; 87186; 87205; 87804; 87811; 94760; 96365; 96366; 96368; 99285; J0696; J1650; J7030; J7050; J7613; J7644